=== PATIENT | male | born 1950 | race Caucasian/White ===

== ENCOUNTER 2022-04-23 00:16 | Emergency (ER) | payer BC, MEDICARE ==
[2022-04-23 01:07] LABS: ALT (SGPT) 27 U/L (8-55); AST (SGOT) 19 U/L (5-34); Albumin 3.8 g/dL (3.4-4.8); Alkaline Phosphatase 70 U/L (40-110); Anion Gap 13 mmol/L (10-20); BUN (Urea Nitrogen) 16 mg/dL (8.4-25.7); Bilirubin, Total 0.7 mg/dL (0.2-1.2); Calc. Creatinine Clearance 0 mL/min (70-130); Calcium 9.3 mg/dL (7.8-10.44); Carbon Dioxide 24 mmol/L (23-31); Chloride 104 mmol/L (98-107); Estimated GFR 41; Globulin 2.9 g/dL (2.4-3.5); Glucose 137 mg/dL (80-115); Protein, Total 6.7 g/dL (5.8-8.1); Sodium 137 mmol/L (136-145)
[2022-04-23 01:08] LABS: #Basophils 0.1 10x3/uL (0.0-0.2); #Eosinphils 0.2 10x3/uL (0.0-0.5); #Monocytes 0.6 10x3/uL (0.0-1.1); #Neutrophils 8.7 10x3/uL (1.5-8.4); %Basophils 0.9 % (0.0-2.0); %Eosinophils 1.4 % (0.0-6.0); %Lymphocytes 15.4 % (18.0-47.0); %Neutrophils 76.7 % (40.0-75.0); Hemoglobin 15.3 g/dL (13.5-17.5); Mean Corpuscular HGB CONC 32.4 g/dL (32.0-36.0); Mean Corpuscular Hemoglobin 28.8 pg (27.0-33.0); Mean Corpuscular Volume 88.7 fl (81.2-95.1); Mean Platelet Volume 10.1 fl (7.4-10.4); Platelet Count 201 10x3/uL (150-450); Red Blood Cell (RBC) Count 5.32 10x6/uL (4.32-5.72); White Blood Cell (WBC) Count 11.3 10x3/uL (3.5-10.5)
== END 2022-04-23 03:12 | disposition home or self-care (01) ==
LOC: CSHERS 00:16
DX: R55 Syncope and collapse (principal); D72.829 Elevated white blood cell count, unspecified; E78.00 Pure hypercholesterolemia, unspecified; I10 Essential (primary) hypertension; Z79.899 Other long term (current) drug therapy
CPT/HCPCS: 36415; 71045; 80053; 83735; 84484; 85025; 93005

== ENCOUNTER 2024-02-15 09:25 | Observation (INO) | payer MEDICARE, BC ==
[2024-02-15 10:09] VITALS: BMI 30.6
[2024-02-15] MEDS ORDERED: Nitroglycerin 0.4 MG TAB (25 Tab Bottle) SL PRN (12:10)
[2024-02-15] MEDS ORDERED: Ondansetron PF 4 MG/2 ML Vial IVP PRN (12:11)
[2024-02-15] MEDS ORDERED: Senokot S 8.6-50 MG TAB PO PRN (12:11)
[2024-02-15] MEDS ORDERED: Ondansetron ODT 4 MG TAB PO PRN (12:11)
[2024-02-15] MEDS ORDERED: Acetaminophen 325 MG TAB PO PRN (12:11)
[2024-02-15] MEDS ORDERED: Calcium Carbonate 500 MG ChewTAB PO PRN (12:11)
[2024-02-15 12:50] LABS: Troponin I Less than 0.010 ng/mL (< 0.028)
[2024-02-15] MEDS ORDERED: Electrolyte Replacement Protocol 1 EACH FS PRN (12:52)
[2024-02-15] MEDS: Clopidogrel Bisulfate 75 MG TAB PO SCH (13:39)
[2024-02-15] MEDS: Magnesium 2 GM/50 ML(in water) 2 GM in Premix 1 BAG IVPB SCH (13:40)
[2024-02-15] MEDS: Atorvastatin Calcium 40 MG TAB PO SCH (20:52)
[2024-02-15] MEDS: Ranolazine ER 500 MG TAB PO SCH (20:52)
[2024-02-15] MEDS: Memantine 10 MG TAB PO SCH (20:53)
[2024-02-15] MEDS: Tamsulosin HCl 0.4 MG CAP PO SCH (20:53)
[2024-02-15] MEDS: Mirtazapine 15 MG TAB PO SCH (23:57)
[2024-02-16 05:24] LABS: Magnesium 2.2 mg/dL (1.6-2.6); Phosphorus 3.7 mg/dL (2.3-4.7)
[2024-02-16] MEDS ORDERED: Non-Formulary Medication 1 EACH (Magnesium [Magnesium] 200 MG Tablet) PO SCH (09:00)
[2024-02-16] MEDS: Clopidogrel Bisulfate 75 MG TAB PO SCH (10:18)
[2024-02-16] MEDS: Pantoprazole 40 MG DR.TAB PO SCH (10:18)
[2024-02-16] MEDS: Lisinopril 20 MG TAB PO SCH (10:28)
[2024-02-16] MEDS: Metoprolol Tartrate 25 MG TAB PO SCH (12:40)
[2024-02-16 13:44] VITALS: TEMP 97.8
[2024-02-16 14:23] VITALS: BP 134/73
[2024-02-16] MEDS ORDERED: Metoprolol Tartrate 25 MG TAB PO SCH (21:00)
[2024-02-17] MEDS ORDERED: Lisinopril 20 MG TAB PO SCH (09:00)
== END 2024-02-16 15:28 | disposition home or self-care (01) ==
LOC: CSHTELE 09:25 → INTOOBSV 09:25
PROVIDERS: ADMIT Internal Medicine; ATTEND Internal Medicine
PROC: B246YZZ Ultrasonography of Right and Left Heart using Other Contrast (ICD-10-PCS; principal; 2024-02-15)
DX: R55 Syncope and collapse (principal); I25.10 Atherosclerotic heart disease of native coronary artery without angina pectoris; I10 Essential (primary) hypertension; I12.9 Hypertensive chronic kidney disease with stage 1 through stage 4 chronic kidney disease, or unspecified chronic kidney disease; N18.30 Chronic kidney disease, stage 3 unspecified; D63.1 Anemia in chronic kidney disease; E66.9 Obesity, unspecified; N40.0 Benign prostatic hyperplasia without lower urinary tract symptoms; F03.90 Unspecified dementia, unspecified severity, without behavioral disturbance, psychotic disturbance, mood disturbance, and anxiety; Z88.5 Allergy status to narcotic agent; Z88.2 Allergy status to sulfonamides; Z79.899 Other long term (current) drug therapy; Z79.02 Long term (current) use of antithrombotics/antiplatelets; Z86.73 Personal history of transient ischemic attack (TIA), and cerebral infarction without residual deficits; Z90.49 Acquired absence of other specified parts of digestive tract; Z87.891 Personal history of nicotine dependence; Z68.30 Body mass index [BMI] 30.0-30.9, adult
CPT/HCPCS: 83735 ×2; 84100; 84132; 84484; 93306; 96365; G0378 ×2; J3475; 36415